=== PATIENT | female | born 2000 | race Hispanic/Latino ===

== ENCOUNTER 2024-05-03 19:31 | Emergency (ER) | payer OTHER ==
--- NOTE | 2024-05-03 19:59 | EDPHYS ---
Physician Documentation [facility] Name: Ralph Lafleur Age: 23 yrs Sex: Female : 2000 Arrival Date: 05/03/2024 Time: 19:31 Bed 7 Private MD: ED Physician Gus Lucio HPI: 05/03 19:59 This 23 yrs old Female presents to ER via Ambulatory with complaints of Bumps ec2 on legs/ankles. 19:59 Patient arrives today for bumps on her anterior tibias. States that she had noticed a ec2 bump on the left anterior tibia, no erythema, no warmth, no fevers. Also had 2 very small nodules on the right anterior tibia. Reports no evolution of the skin changes. Reports she does not believe she had any type of insect injury, denies any weight loss. Patient reports that she may have bumped her tibia.. 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 - Infectious Disease History:: Denies. - Social history:: Smoking status: Reported history of juuling and/or vaping. ROS: 19:59 Constitutional: as per hpi ec2 Exam: 19:59 Constitutional: GEN: NAD Head: atraumatic Eyes: EOMI Ears: External ears are ec2 normal. CV: regular rate LUNGS: no respiratory distress ABD: non-distended SKIN: Small nodules noted on the right anterior tibia, hematoma appearance of the left anterior tibia. No surrounding erythema, no warmth, no fluctuance appreciated. MSK: no evidence of trauma Vital Signs: 19:49 BP 108 / 84; Pulse 80; Resp 15; Temp 97; Pulse Ox 100% on R/A; Weight 65.77 kg; Height cm10 5 ft. 7 in. ; Pain 7/10; 19:49 Body Mass Index 22.71 (65.77 kg, 170.18 cm) cm10 19:49 Pain Scale: Adult cm10 MDM: 19:41 Patient medically screened. ec2 19:59 Data reviewed: vital signs. ED course: Patient arrives today for evaluation of skin ec2 changes. Examination remarkable for skin findings as above. Nodules of undetermined origin, possible granulomatous, possible inflammatory, doubt process such as erythema nodosum, doubt cellulitis, doubt abscess. Will discharge home and instructed her to follow-up with dermatology. Return precautions given. Administered Medications: No medications were administered Disposition Summary: 05/03/24 19:59 Discharge Ordered Notes: Location: Home ec2 Condition: Stable ec2 Diagnosis - Skin Nodules ec2 Followup: ec2 - With: Private Physician - When: - Reason: Re-evaluation by your physician Discharge Instructions: - Discharge Summary Sheet ec2 - Hematoma, [id number] ec2 Forms: - Medication Reconciliation Form ec2 - Antibiotic Education ec2 - Prescription Opioid Use ec2 - Patient Portal Instructions ec2 - Leadership Thank You Letter ec2 Signatures: Elaina Garrison RN RN cm10 Gus Lucio MD MD ec2
--- NOTE | 2024-05-03 19:59 | ER ---
Nurse's Notes [facility] Name: Ralph Lafleur Age: 23 yrs Sex: Female : 2000 Arrival Date: 05/03/2024 Time: 19:31 Bed 7 Private MD: Diagnosis: Skin Nodules Presentation: 05/03 19:49 Chief complaint: Patient states: bumps on bilateral lower legs. Pt has 2 on right leg cm10 and 1 on left. Pt states that she noticed them 1 month ago. Coronavirus screen: Client denies travel out of the [place] in the last 14 days. At this time, the client does not indicate any symptoms associated with coronavirus-19. Ebola Screen: Patient denies travel to an Ebola-affected area in the 21 days before illness onset. No symptoms or risks identified at this time. Initial Sepsis Screen: Does the patient meet any 2 criteria? No. Patient's initial sepsis screen is negative. Does the patient have a suspected source of infection? No. Patient's initial sepsis screen is negative. Risk Assessment: Do you want to hurt yourself or someone else? Patient reports no desire to harm self or others. Onset of symptoms was May 03, 2024. 19:49 Method Of Arrival: Ambulatory cm10 19:49 Acuity: ARISTEO 5 cm10 Triage Assessment: 19:50 General: Appears in no apparent distress. comfortable, Behavior is calm. Neuro: No cm10 deficits noted. Level of Consciousness is awake, alert, obeys commands, Oriented to person, place, time, situation, Appropriate for age. 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 - Infectious Disease History:: Denies. - Social history:: Smoking status: Reported history of juuling and/or vaping. Screenin:04 [facility] ED Fall Risk Assessment (Adult) History of falling in the last 3 months, jh8 including since admission No falls in past 3 months (0 pts) Confusion or Disorientation No (0 pts) Intoxicated or Sedated No (0 pts) Impaired Gait No (0 pts) Mobility Assist Device Used No (0 pt) Altered Elimination No (0 pt) Score/Fall Risk Level 0 - 2 = Low Risk Oriented to surroundings, Maintained a safe environment, Educated pt \T\ family on fall prevention, incl call for assistance when getting out of bed. Abuse screen: Denies threats or abuse. Denies injuries from another. Nutritional screening: No deficits noted. Tuberculosis screening: No symptoms or risk factors identified. Assessment: 19:52 General: Appears in no apparent distress. comfortable, Behavior is calm, cooperative, cp4 appropriate for age. Pain: Denies pain. Neuro: Level of Consciousness is awake, alert, obeys commands, Oriented to person, place, time, situation. Cardiovascular: No deficits noted. Respiratory: No deficits noted. GI: No signs and/or symptoms were reported involving the gastrointestinal system. : No signs and/or symptoms were reported regarding the genitourinary system. : No signs and/or symptoms were reported regarding the genitourinary system. EENT: No signs and/or symptoms were reported regarding the EENT system. Derm: Reports bumps on bilateral legs. Musculoskeletal: No signs and/or symptoms reported regarding the musculoskeletal system. Vital Signs: 19:49 BP 108 / 84; Pulse 80; Resp 15; Temp 97; Pulse Ox 100% on R/A; Weight 65.77 kg; Height cm10 5 ft. 7 in. ; Pain 7/10; 19:49 Body Mass Index 22.71 (65.77 kg, 170.18 cm) cm10 19:49 Pain Scale: Adult cm10 ED Course: 19:34 Patient arrived in ED. ra3 19:35 Gus Lucio MD is Attending Physician. ec2 19:45 Maryann Fermin is Primary Nurse. cp4 19:50 Triage completed. cm10 19:51 Arm band placed on Patient placed in an exam room. cm10 20:04 No provider procedures requiring assistance completed. jh8 20:05 Patient has correct armband on for positive identification. Provided Education on: 8 follow up . 20:05 Patient did not have IV access during this emergency room visit. jh8 Administered Medications: No medications were administered Medication: 20:04 VIS not applicable for this client. jh8 Outcome: 19:59 Discharge ordered by . ec2 20:05 Discharged to home jh8 20:05 Condition: good 20:05 Discharge instructions given to patient, 20:05 Patient left the ED. jh8 Signatures: Elaina Garrison, ELA RN cm10 Gus Lucio MD MD ec2 Maryann Fermin 4 Belinda Harvey 3 Espinoza Serrano, ELA RN jh8
[2024-05-03 20:13] VITALS: BP 108/84; TEMP 97; O2SAT 100
== END 2024-05-03 20:05 | disposition home or self-care (01) ==
LOC: ER 19:31
DX: R22.41 Localized swelling, mass and lump, right lower limb (principal)
CPT/HCPCS: 99282

== ENCOUNTER 2024-07-25 01:27 | Emergency (ER) | payer OTHER ==
--- OUTSIDE RECORDS SUMMARY | 2024-07-25 01:30 | XMS REPORT | Continuity of Care Document ---
Author Name Unknown Address [address] [facility] [place] [address] [facility] Address [address] [facility] 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 Name Role Phone Gracy Amaya Attending Clinician ROBEL Quiles Attending Clinician So lorenzo Payers Payer Name Policy Type Policy Number Effective Date Expirati on Date Source Allergies, Adverse Reactions, Alerts Allergy Name Allergy Type Status Severity Reaction(s) Onset Date Inactive Date Treating Clinician Comments Source No Known Drug Allergie s DA Active U 06-12 00:00: 00 [facility] Encounters Start Date/Time End Date/Time Encounter Type Admission Type Attending Clinicians Care Facility Care Department Encounter ID Source 2022-02-16 13:59:40 Outpatient [facility] [id number] - [id number] [facility] ent 2022-01-17 13:35:05 Outpatient [facility] [id number] [facility] 2023-06-12 15:56:00 2023-06-12 17:26:00 Emergency Emergency Gracy Amaya [facility] [id number] [facility] 2023-06-12 15:56:00 2023-06-12 15:56:00 Emergency [facility] [id number] [facility] 2023-05-30 10:02:00 2023-05-30 12:12:00 Emergency E ROBEL MONTESINOS [facility] [id number] [facility] 2022-02-20 00:00:00 2022-02-20 00:00:00 Outpatient [facility]HD HHD [id number] [facility] ent Results Test Description Test Time Test Comments Results Result Co mments Source Throat Culture-Beta Strep [id number] 16:30:00* Test Item Value Reference Range Interpretation Comme nts Throat Culture-Beta Strep Only (test code = TCBS) Test not performed Notes Date/Time Note Provider Source 2023-06-12 17:37:00 [facility] C enter [address] [place] [address] Emergency Department Document Signed Patient: Ralph Soto Medical Record#: [id number] : 2000 Acct:[id number] Age/Sex: 22 / F Admit/Reg Date: 06/12/23 Loc: [facility] Room: Report Number: [id number]: Gracy Amaya MD Arrival - Arrival ED Triage Note: Pt presents in ED, arrived through front lobby, c/o Sinus Pain x2-3days. Pt denies known exposure to Covid. History of Present Illness Nursing note reviewed: Yes Source: patient Exam/History Limitations: no limitations Primary Care Provider: PCP,UNKNOWN Chief Complaint: Upper Respiratory Infection/Sore Throat Stated Complaint: Sinus Infection History of Present Illness: 22-year-old female presents the ED complaining of sinus pressure, nasal drainage x2 weeks. Patient states 2 weeks ago she went to an urgent care, was tested for influenza, COVID, strep, states all testing was negative they told her she had a viral URI, patient states 2 or 3 days later symptoms improved, however worsened 3 days ago, patient is reporting pressure in the frontal and maxillary sinuses, sore throat, and nasal drainage. Patient denies any chest pain, SOB, weakness, numbness, nausea/vomiting, abdominal pain, cough/congestion, fever syncope. Patient is alert and oriented x3, answering questions appropriately, appears in distress at this time, ambulates with an even steady gait. GCS 15 Vital signs stable LMP 06/09 (Kateryna Day) Allergies/Adverse Reactions: No Known Drug Allergies Allergy (Verified 06/12/23 16:09) Review of Systems ROS: As reviewed in the HPI. All other systems reviewed are negative or normal. (Kateryna Day) Physical Exam Triage Vital Signs: Temperature 36.9 C 06/12/23 16:09 Temperature Source Oral 06/12/23 16:09 Pulse Rate 99 H 06/12/23 16:09 Respiratory Rate 16 06/12/23 16:09 Blood Pressure 139/84 06/12/23 16:09 Blood Pressure Source Automatic Cuff 06/12/23 16:09 Blood Pressure Mean 102 06/12/23 16:09 Blood Pressure Position Sitting 06/12/23 16:09 O2 Sat by Pulse Oximetry 96 06/12/23 16:09 Oxygen Delivery Method Room Air 06/12/23 16:09 Pain Intensity 8 06/12/23 16:09 Physical Exam: CONSTITUTIONAL: Well appearing in no acute distress SKIN: Warm, dry, and intact EYES: Extraocular movements are grossly intact, clear conjunctiva HENT: Normocephalic, atraumatic, moist mucus membranes; tender palpation over the frontal and maxillary sinuses, clear rhinorrhea noted bilaterally, TMs WNL bilaterally oropharynx is erythematous without exudates or edema NECK: No obvious swelling, normal range of motion PULMONARY: Normal chest rise and fall, no respiratory distress or stridor CARDIOVASCULAR: Regular rate, distal extremities are warm and well perfused GASTROINTESTINAL: Nondistended, non-tender GENITOURINARY: No CVA tenderness noted NEUROLOGIC: Normal speech, moves all extremities MUSCULOSKELETAL: No gross deformities, atraumatic PSYCHIATRIC: Normal mood and affect (Kateryna Day) Results/Orders - Results and Orders Lab Testing Results 06/12/23 16:30: Group A Strep Screen Negative MDM/COURSE Vital Signs Temperature 36.9 C 06/12/23 16:09 Pulse Rate 99 H 06/12/23 16:09 Respiratory Rate 16 06/12/23 16:09 Blood Pressure 139/84 06/12/23 16:09 O2 Sat by Pulse Oximetry 96 06/12/23 16:09 Temperature 37 C 06/12/23 17:25 Pulse Rate 81 06/12/23 17:25 Respiratory Rate 16 06/12/23 17:25 Blood Pressure 130/80 06/12/23 17:25 O2 Sat by Pulse Oximetry 98 06/12/23 17:25 - [facility] Medical decision making narrative: LABS Abnormal Lab Results 06/12/23 16:30 Group A Strep Screen Negative MDM: Strep negative Concern for bacterial sinusitis due to patient's report symptoms greater than 10 days, symptoms improved and then worsened, patient has maxillary and frontal sinus tenderness, advised patient will DC home on a 10 day course of Augmentin patient was provided ENT for follow-up. Patient provided strict return precautions verbalized understanding agreement plan of care. Differential Diagnosis associated with patient's presentation includes, but is not limited to: Sinusitis, strep, viral URI, AOM, allergic rhinitis Escalation of care including admission/observation considered: No Discussion of management with other providers include: None Independent interpretations includes: Radiology images were reviewed from the radiologists interpretation. Additional patient history obtained from: Patient Review of external non-ED record: None available Diagnostic Tests considered but not performed: None Prescription medications considered but not given: None Chronic conditions affecting care: none Social determinants of health significantly affecting care include: none Treatment disposition: Patient to be discharged home with strict follow-up and return precautions Medications Reviewed. Following prescriptions provided: augmentin Patient Full Code. Shared Decisions making with patient: Patient agrees with plan The results of pertinent diagnostic studies and exam findings were discussed. The patient s provisional diagnosis and plan of care were discussed with the patient and present family. The patient and/or present family expressed understanding of the diagnosis and plan. The nurse was instructed to provide written instructions and appropriate follow-up information. The patient understands their need and responsibility to obtain additional follow-up as instructed. The risks of medications administered and prescribed were discussed with the patient and family present. (Kateryna Day) Discharge Plan - Discharge Clinical Impression: Acute bacterial sinusitis Disposition: Home or Self-Care Condition: Good Instructions: ED Sinusitis (Antibiotic Treatment) Prescriptions: New amoxicillin-pot clavulanate 875-125 mg Tablet 1 tab PO BID 10 Days Qty: 20 RF: 0 Prescription Printed Referrals: Clinic [Other] Compa Epperson MD [Staff Physician] - (ENT call for follow up) Print Language: Slovenian - Discharge Data Time Seen by Provider: 06/12/23 15:59 - Depart Patient Account Discharge Date/Time: 06/12/23 17:26 Dictated By: Kateryna Day NP Signed By: Kateryna Day NP 06/12/23 1742 Gracy Amaya MD 06/15/23 0658 DD/ 36 TD/TT: 06/12/231736 Catering Service Manager: KRISTYN cc: PCPUNK* PCP,UNKNOWN [facility]
[2024-07-25] MEDS ORDERED: BENZONATATE 100 MG CAP PO ONE (03:03)
[2024-07-25] MEDS ORDERED: NA CHLORIDE 0.9% 1,000 ML ONE (03:03)
[2024-07-25] MEDS ORDERED: METOCLOPRAMIDE 10 MG/2mL INJ ONE (03:08)
[2024-07-25] MEDS ORDERED: ACETAMINOPHEN 500 MG TAB ONE (03:13)
[2024-07-25 03:32] LABS: Absolute Lymphocytes (CBC) 1.7 K/uL (0.7-4.9); Absolute Monocytes 0.5 K/uL (0.1-1.3); Absolute Neutrophil 6.7 K/uL (1.8-8.0); Basophils % 0.3 % (0-1.3); Eosinophils % 0.5 % (0-4.4); Hematocrit 39.4 % (36.0-45.0); Hemoglobin 13.8 g/dL (12.0-15.0); Lymphocytes % 19.1 % (15.3-44.8); MCH 32.1 pg (27.0-35.0); MCHC 35.2 g/dL (32.0-36.0); MCV 91.3 fL (80-100); MPV 8.2 fL (7.6-11.3); Neutrophils % 74.1 % (41.7-73.7); Platelets 257 thou/uL (152-406); RBC Red Blood Cell Count 4.31 M/uL (3.86-4.86); Red Cell Distribution Width 12.8 % (12.1-15.2)
[2024-07-25 03:37] LABS: Anion Gap 7.8 mEq/L (5.0-15.0); Potassium 3.8 mEq/L (3.5-5.1)
--- NOTE | 2024-07-25 04:05 | ER ---
Nurse's Notes [facility] Name: Ralph Lafleur Age: 23 yrs Sex: Female : 2000 Arrival Date: 07/25/2024 Time: 01:27 Bed 6 Private MD: Diagnosis: Viral infection, unspecified Presentation: 07/25 01:34 Chief complaint: Patient states: DRY HACKING COUGH, MY CHEST HURST WHEN COUGHING. ha1 01:34 Coronavirus screen: Vaccine status: Patient reports being unvaccinated. Ebola Screen: ha1 No symptoms or risks identified at this time. Initial Sepsis Screen: Does the patient meet any 2 criteria? No. Patient's initial sepsis screen is negative. Does the patient have a suspected source of infection? No. Patient's initial sepsis screen is negative. Risk Assessment: Do you want to hurt yourself or someone else? Patient reports no desire to harm self or others. Onset of symptoms was July 25, 2024. 01:34 Method Of Arrival: Ambulatory ha1 01:34 Acuity: ARISTEO 4 ha1 Triage Assessment: 01:34 General: Appears comfortable, Behavior is calm, cooperative. Pain: Complains of pain in ha1 CHEST WALL WHEN COUGHING Pain does not radiate. Pain currently is 6 out of 10 on a pain scale. Quality of pain is described as tender. Neuro: Level of Consciousness is awake, alert, obeys commands, Oriented to person, place, time, situation. Cardiovascular: Capillary refill < 3 seconds Patient's skin is warm and dry. Respiratory: Airway is patent Respiratory effort is even, unlabored, Respiratory pattern is regular, symmetrical. Respiratory: Reports cough that is non-productive, dry, hacking. GI: No signs and/or symptoms were reported involving the gastrointestinal system. Historical: - Allergies: 01:45 No Known Allergies; ha1 - PMHx: 01:45 None; ha1 - PSHx: 01:45 section; Tonsillectomy; ha1 - Immunization history:: Adult Immunizations up to date. - Infectious Disease History:: Denies. - Social history:: Smoking status: Patient/guardian denies using tobacco, Stopped _ months ago 1. Screenin:45 [facility] ED Fall Risk Assessment (Adult) History of falling in the last 3 months, jj7 including since admission No falls in past 3 months (0 pts) Confusion or Disorientation No (0 pts) Intoxicated or Sedated No (0 pts) Impaired Gait No (0 pts) Mobility Assist Device Used No (0 pt) Altered Elimination No (0 pt) Score/Fall Risk Level 0 - 2 = Low Risk Oriented to surroundings, Maintained a safe environment, Educated pt \T\ family on fall prevention, incl call for assistance when getting out of bed, Assessed \T\ reinforced patient's understanding of fall precautions. Abuse screen: Denies threats or abuse. Nutritional screening: No deficits noted. Tuberculosis screening: No symptoms or risk factors identified. Assessment: 02:45 General: Appears in no apparent distress. comfortable, Behavior is calm, cooperative, jj7 appropriate for age. Pain: Complains of pain in face and chest. Neuro: Reports headache frontal area, HEAD PRESSURE. Vital Signs: 01:34 BP 125 / 75; Pulse 100; Resp 19 S; Temp 99.8(O); Pulse Ox 99% on R/A; Weight 70.31 kg; ha1 Height 5 ft. 1 in. ; 02:45 BP 127 / 82; Pulse 93; Resp 18; Pulse Ox 98% ; jj7 03:57 BP 109 / 79; Pulse 92; Resp 17; Pulse Ox 100% ; jj7 01:34 Body Mass Index 29.29 (70.31 kg, 154.94 cm) ha1 ED Course: 01:29 Patient arrived in ED. jj6 01:33 Gus Lucio MD is Attending Physician. ec2 01:45 Triage completed. ha1 02:40 Bhavin Feng RN is Primary Nurse. jj7 02:45 No provider procedures requiring assistance completed. Patient maintains SpO2 jj7 saturation greater than 95% on room air. 02:45 Patient has correct armband on for positive identification. Bed in low position. Call jj7 light in reach. Provided Education on: USE OF CALL THOMSON. Client placed on continuous cardiac and pulse oximetry monitoring. NIBP monitoring applied. 02:52 Inserted saline lock: 20 gauge in right antecubital area, using aseptic technique. vk Blood collected. Flushed with 10 mL NS. 02:52 Initial lab(s) drawn, by me, sent to lab. vk 02:52 Urine collected: clean catch specimen, clear. vk 03:54 EKG done, by ED staff. vk 04:11 IV discontinued, intact, bleeding controlled, No redness/swelling at site. Pressure jj7 dressing applied. Administered Medications: 03:09 Drug: NS 0.9% IV 1000 ml IV at 1000 ml once; to be given as a bolus over 60 minutes jj7 Route: IV; Rate: 1000 ml; Site: right antecubital; 04:11 Follow up: IV Status: Completed infusion jj7 03:09 Drug: Tessalon Perle PO 200 mg PO once Route: PO; jj7 04:10 Follow up: Response: Marked relief of symptoms jj7 03:11 Drug: metoCLOPramide IVP 10 mg IVP once; over 1 to 2 minutes Route: IVP; Site: right j antecubital; 04:09 Follow up: Response: Marked relief of symptoms jj7 03:16 Drug: Acetaminophen PO 1000 mg PO once Route: PO; jj7 04:09 Follow up: Response: Marked relief of symptoms jj7 Medication: 02:45 VIS not applicable for this client. jj7 Outcome: 04:05 Discharge ordered by . asmita 04:11 Discharged to home ambulatory, jj7 04:11 Condition: improved 04:11 Discharge instructions given to patient, Instructed on discharge instructions, medication usage, Demonstrated understanding of instructions, medications, Prescriptions given X 2, 04:16 Patient left the ED. jj7 Signatures: Ranjana Mayorga jj6 Alaina Cardona RN RN ha1 Bhavin Feng RN RN jj7 Gus Lucio MD MD ec2 Winifred Norman
--- NOTE | 2024-07-25 04:06 | EDPHYS ---
Physician Documentation [facility] Name: Ralph Lafleur Age: 23 yrs Sex: Female : 2000 Arrival Date: 07/25/2024 Time: 01:27 Bed 6 Private MD: ED Physician Gus Lucio HPI: 07/25 01:56 This 23 yrs old Female presents to ER via Ambulatory with complaints of Cough, ec2 Chest Wall Pain. 01:56 Patient arrives today for cough and cold symptoms as well as lightheadedness. Reports ec2 has been having symptoms for the past 6 days. Patient reports fatigue, states that she also has some lightheadedness which prompted evaluation today. D reports that she has a frequent cough that exacerbates her chest pain.. Historical: - Allergies: 01:45 No Known Allergies; ha1 - PMHx: 01:45 None; ha1 - PSHx: 01:45 section; Tonsillectomy; ha1 - Immunization history:: Adult Immunizations up to date. - Infectious Disease History:: Denies. - Social history:: Smoking status: Patient/guardian denies using tobacco, Stopped _ months ago 1. ROS: 01:57 Constitutional: as per hpi ec2 Exam: 01:57 Constitutional: GEN: NAD Head: atraumatic Eyes: EOMI Ears: External ears are ec2 normal. CV: regular rate LUNGS: no respiratory distress., No wheezes, no rales, no rhonchi ABD: non-distended SKIN: no evidence of rashes MSK: no evidence of trauma Vital Signs: 01:34 BP 125 / 75; Pulse 100; Resp 19 S; Temp 99.8(O); Pulse Ox 99% on R/A; Weight 70.31 kg; ha1 Height 5 ft. 1 in. ; 02:45 BP 127 / 82; Pulse 93; Resp 18; Pulse Ox 98% ; jj7 03:57 BP 109 / 79; Pulse 92; Resp 17; Pulse Ox 100% ; jj7 01:34 Body Mass Index 29.29 (70.31 kg, 154.94 cm) [facility] MDM: 01:37 Medical Screening Exam initiated ec2 01:57 Data reviewed: vital signs. ED course: Patient arrives today for URI symptoms along ec2 with lightheadedness. Examination remarkable for well-appearing nontoxic individuals otherwise in no acute distress with a reassuring cardiopulmonary examination. Will obtain lab work, chest x-ray. Suspect viral infection. Doubt pneumonia given lack of focal lung sounds. Initially evaluated for processes such as electrolyte disturbance, anemia, . 03:50 ED course: EKG independently reviewed and interpreted by me, shows normal sinus rhythm, ec2 rate of 92, no acute ST segment elevation, intervals are nonactionable.. 03:58 ED course: Chest x-ray independently reviewed and interpreted by me, shows no acute ec2 intrathoracic process.. 04:04 ED course: On reassessment patient is well-appearing no acute distress. Suspect viral ec2 infection. Will discharge home. Precautions given.. 07/25 03:35 Order name: CBC with Automated Diff; Complete Time: 03:37 EDMS 07/25 03:35 Order name: Test Serum, Qualitat; Complete Time: 03:37 EDMS 07/25 03:37 Order name: Basic Metabolic Panel; Complete Time: 03:58 EDMS 07/25 01:57 Order name: IV Start; Complete Time: 02:52 ec2 07/25 03:24 Order name: EKG - Nurse/Tech; Complete Time: 03:53 ec2 Administered Medications: 03:09 Drug: NS 0.9% IV 1000 ml IV at 1000 ml once; to be given as a bolus over 60 minutes jj7 Route: IV; Rate: 1000 ml; Site: right antecubital; 04:11 Follow up: IV Status: Completed infusion jj7 03:09 Drug: Tessalon Perle PO 200 mg PO once Route: PO; jj7 04:10 Follow up: Response: Marked relief of symptoms jj7 03:11 Drug: metoCLOPramide IVP 10 mg IVP once; over 1 to 2 minutes Route: IVP; Site: right j antecubital; 04:09 Follow up: Response: Marked relief of symptoms jj7 03:16 Drug: Acetaminophen PO 1000 mg PO once Route: PO; jj7 04:09 Follow up: Response: Marked relief of symptoms jj7 Disposition Summary: 07/25/24 04:05 Discharge Ordered Notes: Location: Home ec2 Condition: Stable ec2 Diagnosis - Viral infection, unspecified ec2 Followup: ec2 - With: Private Physician - When: - Reason: Re-evaluation by your physician Discharge Instructions: - Discharge Summary Sheet ec2 - Viral Illness, Adult ec2 Forms: - Medication Reconciliation Form ec2 - Antibiotic Education ec2 - Prescription Opioid Use ec2 - Patient Portal Instructions ec2 - Leadership Thank You Letter ec2 Prescriptions: - Compazine 10 mg Oral Tablet - take 1 tablet ORAL route every 8 hours As needed; 10 tablet; Refills: 0, ec2 Product Selection Permitted - Tessalon Perles 100 mg Oral Capsule - take 1 capsule ORAL route every 8 hours As needed; 15 capsule; Refills: 0, ec2 Product Selection Permitted Signatures: Dispatcher [employer] Alaina Cuevas RN RN ha1 Bhavin Feng RN RN jj7 Gus Lucio MD MD ec2
--- NOTE | 2024-07-25 05:46 | RAD REPORT ---
PROCEDURE: XR Chest, 2 Views CLINICAL INDICATION: The patient is 23 years old and is Female; Chest pain. TECHNIQUE: Frontal and lateral views of the chest. COMPARISON: None. FINDINGS: LUNGS: Unremarkable No consolidation. PLEURAL SPACE: No appreciable pleural effusion or pneumothorax. HEART: Unremarkable No cardiomegaly. MEDIASTINUM: Unremarkable Normal mediastinal contour. BONES/JOINTS: No acute osseous abnormality. IMPRESSION: No acute cardiopulmonary abnormality. Electronically signed by: Jude Cisse MD 07/25/2024 05:32 AM [facility] Due to temporary technical issues with the [facility] reporting system, reports are being onel d by the in-house radiologist without review as a courtesy to ensure prompt reporting the interpreting radiologist is fully responsible for the content of the report. Transcribed Date/Time: 07/25/2024 5:46 AM
== END 2024-07-25 04:16 | disposition home or self-care (01) ==
LOC: ER 01:27
DX: B34.9 Viral infection, unspecified (principal); R07.89 Other chest pain
CPT/HCPCS: 96361; 85025; 80048; 36415; 84703; 71046; 96374; 99285; J2765; J7030

== ENCOUNTER 2025-01-16 17:05 | Emergency (ER) | payer OTHER, SELFPAY ==
--- OUTSIDE RECORDS SUMMARY | 2025-01-16 17:08 | XMS REPORT | Continuity of Care Document ---
Author Name Unknown Address [address] [facility] [address] [place] [address] [facility] [address] [facility] [place] [address] Care Team Providers Care Edge Grinder Machine Name Role Phone Gracy Amaya Attending Clinician ROBEL Quiles Attending Clinician So lorenzo Payers Payer Name Policy Type Policy Number Effective Date Expirati on Date Source Allergies, Adverse Reactions, Alerts Allergy Name Allergy Type Status Severity Reaction(s) Onset Date Inactive Date Treating Clinician Comments Source No Known Drug Allergie s DA Active U 06-12 00:00: 00 [facility] Encounters Start Date/Time End Date/Time Encounter Type Admission Type Attending Clinicians Care Facility Care Department Encounter ID Source 2022-02-16 13:59:40 Outpatient [facility] [id number] - [id number] [facility] 2022-01-17 13:35:05 Outpatient [facility] [id number] [facility] 2023-06-12 15:56:00 2023-06-12 17:26:00 Emergency Emergency Gracy Amaya [facility] [id number] [facility] 2023-06-12 15:56:00 2023-06-12 15:56:00 Emergency [facility] [id number] [facility] 2023-05-30 10:02:00 2023-05-30 12:12:00 Emergency E ROBEL MONTESINOS [facility] [id number] [facility] 2022-02-20 00:00:00 2022-02-20 00:00:00 Outpatient [facility] HHD [id number] [facility] Results Test Description Test Time Test Comments Results Result Co mments Source Throat Culture-Beta Strep [id number] 16:30:00* Test Item Value Reference Range Interpretation Comme nts Throat Culture-Beta Strep Only (test code = TCBS) Test not performed Notes Date/Time Note Provider Source 2023-06-12 17:37:00 [facility] C enter [address] [place] [address] Emergency Department Document Signed Patient: Ralph Soto Medical Record#: [id number] : 2000 Acct:[id number] Age/Sex: 22 / F Admit/Reg Date: 06/12/23 Loc: [facility] Room: Report Number: [id number] Attending [address]: Gracy Amaya MD Arrival - [...] by Pulse Oximetry 98 06/12/23 17:25 - [facility] Medical decision making narrative: LABS [...] (ENT call for follow up) Print Language: Belarusian - Discharge Data Time Seen by Provider: 06/12/23 15:59 - Depart Patient Account Discharge Date/Time: 06/12/23 17:26 Dictated By: Kateryna Day NP Signed By: Kateryna Day NP 06/12/23 1742 Gracy Amaya MD 06/15/23 0658 DD/ 36 TD/TT: 06/12/231736 Polisher And Sander: KRISTYN cc: PCPUNK* PCP,UNKNOWN [facility]
--- NOTE | 2025-01-16 17:37 | ER ---
Nurse's Notes [facility] Name: Ralph Lafleur Age: 24 yrs Sex: Female : 2000 Arrival Date: 01/16/2025 Time: 17:05 Bed 6 Private MD: Diagnosis: Contusion of lower leg Presentation: 01/16 17:15 Chief complaint: Patient states: her LMP was September or October (13 weeks ). ap3 Patient reports a bruise and lump on her left lower leg that "comes and goes for the last few months", and "feeling faint for the last few days to a week. I'm not sure if that is because I am or what". patient has not had any care yet, but has an appointment scheduled. Coronavirus screen: At this time, the client does not indicate any symptoms associated with coronavirus-19. Ebola Screen: No symptoms or risks identified at this time. Initial Sepsis Screen: Does the patient meet any 2 criteria? No. Patient's initial sepsis screen is negative. Does the patient have a suspected source of infection? No. Patient's initial sepsis screen is negative. Risk Assessment: Do you want to hurt yourself or someone else? Patient reports no desire to harm self or others. Onset of symptoms is unknown. 17:15 Method Of Arrival: Ambulatory ap3 17:15 Acuity: ARISTEO 3 ap3 Triage Assessment: 17:17 General: Appears in no apparent distress. Behavior is calm, cooperative, appropriate ap3 for age. Pain: Complains of pain in right leg. Neuro: Level of Consciousness is awake, alert, obeys commands, Oriented to person, place, time, situation, Appropriate for age. Cardiovascular: Patient's skin is warm and dry. Respiratory: Airway is patent Respiratory effort is even, unlabored, Respiratory pattern is regular, symmetrical. :. 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 Flu vaccine is not up to date. - Infectious Disease History:: Denies. - Social history:: Smoking status: Patient denies any tobacco usage or history of. Screenin:18 [facility] ED Fall Risk Assessment (Adult) History of falling in the last 3 months, ap3 including since admission No falls in past 3 months (0 pts) Confusion or Disorientation No (0 pts) Intoxicated or Sedated No (0 pts) Impaired Gait No (0 pts) Mobility Assist Device Used No (0 pt) Altered Elimination No (0 pt) Score/Fall Risk Level 0 - 2 = Low Risk Oriented to surroundings, Maintained a safe environment, Educated pt \\T\\ family on fall prevention, incl call for assistance when getting out of bed, Assessed \\T\\ reinforced patient's understanding of fall precautions, Hourly rounding (assess needs \\T\\ fall precautionary measures) done, Used ambulatory aids as needed (educated on \\T\\ assisted with). Abuse screen: Denies threats or abuse. Nutritional screening: No deficits noted. Tuberculosis screening: No symptoms or risk factors identified. Assessment: 17:25 General: Appears comfortable, Behavior is calm, cooperative, Reports being 13 weeks aa5 . Pain: Denies pain. Neuro: Level of Consciousness is awake, alert, obeys commands, Oriented to person, place, time, situation, Reports feeling intermittently dizzy x 3-4 days ago. . Cardiovascular: Patient's skin is warm and dry. Respiratory: Airway is patent Respiratory effort is even, unlabored, Respiratory pattern is regular, symmetrical. GI: No signs and/or symptoms were reported involving the gastrointestinal system. : No signs and/or symptoms were reported regarding the genitourinary system. EENT: No signs and/or symptoms were reported regarding the EENT system. Derm: Skin is pink, warm \\T\\ dry. Musculoskeletal: Range of motion: intact in all extremities, swollen lump to raul shins that began "a few months ago and they go down and then flare up again", pt reports lumps are mildly tender to palpation, pt states "I fell a few months ago but that's about it", denies any other injuries. 17:43 Reassessment: Patient is alert, oriented x 3, equal unlabored respirations, skin aa5 warm/dry/pink. Vital Signs: 17:15 BP 120 / 78; Pulse 84; Resp 17; Temp 98.3(O); Pulse Ox 98% ; Weight 72.57 kg; Height 5 ap3 ft. 2 in. ; Pain 7/10; 17:15 Body Mass Index 29.26 (72.57 kg, 157.48 cm) ap3 17:15 Pain Scale: Adult ap3 ED Course: 17:06 Patient arrived in ED. mr 17:07 Radha Mcfadden MD is Attending Physician. gb1 17:17 Triage completed. ap3 17:18 Arm band placed on right wrist. ap3 17:21 Mega Solitario, RN is Primary Nurse. bp 17:25 Patient has correct armband on for positive identification. Bed in low position. Call aa5 light in reach. Side rails up X 1. Adult w/ patient. 17:26 Primary Nurse role handed off by Mega Solitario, ELA aa5 17:26 Berenice Macario, ELA is Primary Nurse. aa5 17:43 No provider procedures requiring assistance completed. Patient did not have IV access aa5 during this emergency room visit. Administered Medications: No medications were administered Medication: 17:25 VIS not applicable for this client. aa5 Outcome: 17:37 Discharge ordered by . gb1 17:43 Discharged to home ambulatory, with significant other, aa5 17:43 Condition: stable 17:43 Discharge instructions given to patient, Instructed on discharge instructions, follow up and referral plans. Demonstrated understanding of instructions, follow-up care, 17:45 Patient left the ED. aa5 Signatures: Christie Howe, Reg Reg MacarioBerenice grimm, RN RN aa5 Mega Solitario, RN RN Rose Masterson RN RN ap3 Radha Mcfadden MD MD gb1 Corrections: (The following items were deleted from the chart) 17:37 17:25 General: Appears comfortable, Behavior is calm, cooperative, aa5 aa5
--- NOTE | 2025-01-16 17:37 | EDPHYS ---
Physician Documentation [facility] Name: Ralph Lafleur Age: 24 yrs Sex: Female : 2000 Arrival Date: 01/16/2025 Time: 17:05 Bed 6 Private MD: ED Physician Radha Mcfadden HPI: 01/16 17:43 This 24 yrs old Female presents to ER via Ambulatory with complaints of Lump gb1 on leg. 17:43 24-year-old female with lump on the right leg she had trauma to that leg a couple years gb1 ago and has reinjured it now there is a bruise there. Patient states it is painful to the touch.. 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 Flu vaccine is not up to date. - Infectious Disease History:: Denies. - Social history:: Smoking status: Patient denies any tobacco usage or history of. Exam: 17:43 Constitutional: This is a well developed, well nourished patient who is awake, alert, gb1 and in no acute distress. Head/Face: Normocephalic, atraumatic. Eyes: Pupils equal round and reactive to light, extra-ocular motions intact. Lids and lashes normal. Conjunctiva and sclera are non-icteric and not injected. Cornea within normal limits. Periorbital areas with no swelling, redness, or edema. ENT: Nares patent. No nasal discharge, no septal abnormalities noted. Tympanic membranes are normal and external auditory canals are clear. Oropharynx with no redness, swelling, or masses, exudates, or evidence of obstruction, uvula midline. Mucous membranes moist. Neck: Trachea midline, no thyromegaly or masses palpated, and no cervical lymphadenopathy. Supple, full range of motion without nuchal rigidity, or vertebral point tenderness. No Meningismus. Chest/axilla: Normal chest wall appearance and motion. Nontender with no deformity. No lesions are appreciated. Cardiovascular: Regular rate and rhythm with a normal S1 and S2. No gallops, murmurs, or rubs. Normal PMI, no JVD. No pulse deficits. Respiratory: Lungs have equal breath sounds bilaterally, clear to auscultation and percussion. No rales, rhonchi or wheezes noted. No increased work of breathing, no retractions or nasal flaring. Abdomen/GI: Soft, non-tender, with normal bowel sounds. No distension or tympany. No guarding or rebound. No evidence of tenderness throughout. Skin: Warm, dry with normal turgor. Normal color with no rashes, no lesions, and no evidence of cellulitis. MS/ Extremity: Pulses equal, no cyanosis. Neurovascular intact. Full, normal range of motion. There is a small area of contusion with ecchymosis to the right lower extremity. Tender to the touch. No surrounding cellulitis present. Vital Signs: 17:15 BP 120 / 78; Pulse 84; Resp 17; Temp 98.3(O); Pulse Ox 98% ; Weight 72.57 kg; Height 5 ap3 ft. 2 in. ; Pain 7/10; 17:15 Body Mass Index 29.26 (72.57 kg, 157.48 cm) ap3 17:15 Pain Scale: Adult ap3 MDM: 17:25 Medical Screening Exam initiated gb1 17:43 Data reviewed: vital signs, nurses notes. ED course: 24-year-old female status post gb1 remote trauma here with a right lower extremity contusion. No sign of fracture or dislocation. No obvious deformity. There is no surrounding erythema I doubt an acute cellulitis. These are likely secondary to trauma. Recommend NSAIDs and topical cord hydrocortisone. Less likely erysipelas.. Administered Medications: No medications were administered Disposition Summary: 01/16/25 17:37 Discharge Ordered Notes: Location: Home gb1 Problem: an ongoing problem gb1 Symptoms: are unchanged gb1 Condition: Stable gb1 Diagnosis - Contusion of lower leg gb1 Followup: gb1 - With: Private Physician - When: - Reason: Further diagnostic work-up Discharge Instructions: - Discharge Summary Sheet gb1 - Contusion, [id number] gb1 Forms: - Medication Reconciliation Form gb1 - Antibiotic Education gb1 - Prescription Opioid Use gb1 - Patient Portal Instructions gb1 - Leadership Thank You Letter gb1 Signatures: Rose Walls RN RN ap3 Lesa, Radha, MD MD gb1
[2025-01-16 18:25] VITALS: BP 120/78; TEMP 98.3; O2SAT 98
== END 2025-01-16 17:45 | disposition home or self-care (01) ==
LOC: ER 17:05
DX: S80.11XA Contusion of right lower leg, initial encounter (principal)
CPT/HCPCS: 99282